=== PATIENT | female | born 1955 | race Caucasian/White ===

== ENCOUNTER 2016-11-15 08:47 | Day surgery (SDC) | payer BC ==
[~2016-11-15] VITALS: Ht 175.3 cm; Wt 71.2 kg
[~2016-11-15 08:47] MED LIST: POTASSIUM CITR15 MEQ PO; PRILOSEC OTC20 M1 PO; SYNTHROID50 MC1 PO; VITAMIN D-32000 UNI3 PO
== END 2016-11-15 12:15 ==
LOC: SHSB 08:47 → ENDOS 08:47 → SHSB 08:48 → ENDOS 11:00
PROC: 0DB28ZX Excision of Middle Esophagus, Via Natural or Artificial Opening Endoscopic, Diagnostic (ICD-10-PCS; principal; 2016-11-15)
PROC: 0DB98ZX Excision of Duodenum, Via Natural or Artificial Opening Endoscopic, Diagnostic (ICD-10-PCS; 2016-11-15)
DX: K22.70 Barrett's esophagus without dysplasia (principal); K52.9 Noninfective gastroenteritis and colitis, unspecified; E03.9 Hypothyroidism, unspecified; F41.9 Anxiety disorder, unspecified; G47.33 Obstructive sleep apnea (adult) (pediatric); N19 Unspecified kidney failure; Z79.899 Other long term (current) drug therapy; Z88.8 Allergy status to other drugs, medicaments and biological substances